=== PATIENT | female | born 1955 ===

== ENCOUNTER → 2018-12-09 22:35 | Outpatient (REF) | payer OTHER, SELFPAY ==
[2018-12-10 01:24] LABS: Thyroid Stimulating Hormone 3.04 uIU/mL (0.47-4.68)
[2018-12-10 08:57] LABS: Free T3, Triiodothyronine Free 4.63 pg/mL (2.77-5.27); T4 Total Thyroxine 6.94 ug/dL (5.5-11.0)
[2018-12-12 18:43] LABS: Progesterone 0.9 ng/mL
[2018-12-14 19:01] LABS: Estrogen 67.6 pg/mL
== END ==
LOC: LAB 22:35
PROVIDERS: Visit Provider Naturopath
DX: E03.9 Hypothyroidism, unspecified (principal); N95.1 Menopausal and female climacteric states; R53.83 Other fatigue
CPT/HCPCS: 36415; 82672; 84144; 84436; 84443; 84481